=== PATIENT | female | born 1955 | race Caucasian/White ===

== ENCOUNTER → 2016-06-08 | Outpatient (CLI) | payer OTHER ==
[~2016-06-08] MED LIST: AMIT25TA PO; ASPI1TAB PO; ATOR1TAB19 PO; CALC600T21 PO; ESOM1CAP5 PO; EXEM25TA PO; LISI-538 PO; MYRB25TA PO; VITA100066 PO
--- NOTE | 2016-06-08 19:07 | REP ---
Acute abdominal series series including PA chest and supine upright abdomen: PA chest: Cardiac size appears enlarged, however, I suspect this is artifactual from large bilateral epicardial fat pads. Lung carballo are clear. The erin, mediastinum, and bony thorax unremarkable. There is no free subdiaphragmatic air. Impression: Essentially negative PA chest. Abdomen, supine upright views: The bowel gas pattern is normal. There are calcifications in the pelvis, nonspecific, ureteral versus phleboliths. Correlation with symptomatology is recommended. Skeletal structures and soft tissues are otherwise unremarkable. Impression: Normal bowel gas pattern. Signed by Owen Wood MD 06/08/2016 06:59 P
== END ==
LOC: M LRY 18:22
PROVIDERS: ATTEND Nurse Practitioner Family
DX: R14.0 Abdominal distension (gaseous) (principal)

== ENCOUNTER → 2016-06-08 | Outpatient (REF) | payer OTHER ==
[2016-06-08 20:26] LABS: AMYLASE 59 U/L (25-115)
[2016-06-08 20:32] LABS: ALBUMIN 4.1 GM/DL (3.2-5.2); ALBUMIN/GLOBULIN RATIO 1.24 (1.00-1.93); ALKALINE PHOSPHATASE 73 U/L (45-117); ALT/SGPT 19 U/L (12-78); ANION GAP 6 MEQ/L (8-16); AST/SGOT 27 U/L (15-37); BILIRUBIN,TOTAL 0.3 MG/DL (0.2-1.0); BLOOD UREA NITROGEN 16 MG/DL (7-18); CALCIUM LEVEL 9.1 MG/DL (8.8-10.2); CARBON DIOXIDE LEVEL 31 MEQ/L (21-32); CHLORIDE LEVEL 104 MEQ/L (98-107); CREATININE FOR GFR 0.72 MG/DL (0.55-1.02); GLOMERULAR FILTRATION RATE > 60.0 (>45); GLUCOSE, FASTING 97 MG/DL (80-110); POTASSIUM SERUM 3.9 MEQ/L (3.5-5.1); SODIUM LEVEL 141 MEQ/L (136-145); TOTAL PROTEIN 7.4 GM/DL (6.4-8.2)
[2016-06-08 20:42] LABS: BASO % 0.7 % (0.0-1.0); EOS # 0.3 K/mm3 (0.0-0.50); LARGE UNSTAINED CELL # 0.1 K/mm3 (0.0-0.4); LARGE UNSTAINED CELL % 1.7 % (0.0-4.0); LYMPH # 1.6 K/mm3 (1.5-4.5); LYMPH % 28.5 % (24.0-44.0); MEAN CORPUSCULAR HEMOGLOBIN 32.8 pg (27.0-33.0); MEAN CORPUSCULAR HGB CONC 34.7 g/dl (32.0-36.5); MEAN CORPUSCULAR VOLUME 94.3 fl (80.0-96.0); MONO # 0.5 K/mm3 (0.0-0.8); MONO % 8.2 % (0.0-5.0); NEUTROPHILS # 3.2 K/mm3 (1.8-7.7); NEUTROPHILS % 55.9 % (36.0-66.0); PLATELET COUNT, AUTOMATED 260 k/mm3 (150-450); RED CELL DISTRIBUTION WIDTH 13.3 % (11.5-14.5); WHITE BLOOD COUNT 5.7 K/mm3 (4.0-10.0)
== END ==
LOC: M SFHCLERA 18:20
PROVIDERS: ATTEND Nurse Practitioner Family
DX: R14.0 Abdominal distension (gaseous) (principal)

== ENCOUNTER 2017-05-23 12:25 | Day surgery (SDC) | payer OTHER ==
[2017-05-23] MEDS: LR 1,000 ML IV (12:00)
[2017-05-23] MEDS ORDERED: PROPOFOL 200 MG/20 ML VIAL As Ordered ×3 (14:54)
[2017-05-23] MEDS ORDERED: LIDOCAINE 2% INJ 100 MG/5 ML SDV (FOR ANES.) As Ordered (14:54)
== END 2017-05-23 15:38 | disposition home or self-care (01) ==
LOC: M OPP 12:25
DX: R13.10 Dysphagia, unspecified (principal); K31.7 Polyp of stomach and duodenum; K22.2 Esophageal obstruction; K44.9 Diaphragmatic hernia without obstruction or gangrene; J30.1 Allergic rhinitis due to pollen; I10 Essential (primary) hypertension; E78.00 Pure hypercholesterolemia, unspecified; M19.90 Unspecified osteoarthritis, unspecified site; M79.7 Fibromyalgia; Z79.82 Long term (current) use of aspirin; Z79.899 Other long term (current) drug therapy; Z86.718 Personal history of other venous thrombosis and embolism; Z96.652 Presence of left artificial knee joint
CPT/HCPCS: 43249

== ENCOUNTER → 2017-07-17 | Outpatient (CLI) | payer OTHER ==
[2017-07-17 10:56] LABS: ALBUMIN 3.8 GM/DL (3.2-5.2); ANION GAP 6 MEQ/L (8-16); BLOOD UREA NITROGEN 24 MG/DL (7-18); CALCIUM LEVEL 8.9 MG/DL (8.8-10.2); CARBON DIOXIDE LEVEL 30 MEQ/L (21-32); CHLORIDE LEVEL 105 MEQ/L (98-107); GLOMERULAR FILTRATION RATE > 60.0 (>45); GLUCOSE, FASTING 100 MG/DL (70-100); MAGNESIUM LEVEL 2.5 MG/DL (1.8-2.4); PHOSPHORUS LEVEL 3.8 MG/DL (2.5-4.9); POTASSIUM SERUM 4.6 MEQ/L (3.5-5.1); SODIUM LEVEL 141 MEQ/L (136-145)
== END ==
LOC: M LAB 10:12
DX: I49.3 Ventricular premature depolarization (principal)
CPT/HCPCS: 83735

== ENCOUNTER → 2018-08-07 | Outpatient (REF) | payer MEDICARE, OTHER ==
[~2018-08-07] MED LIST changes: -ASPI1TAB PO; +ASPI81TA26 PO; +BACLOFEN PO; +BIOT1CAP2 PO; -CALC600T21 PO; +CALC600T60 PO; +CALCTAB75 PO
[2018-08-07 19:32] LABS: AMORPHOUS SEDIMENT SMALL (NEGATIVE); APPEARANCE, URINE TURBID (CLEAR); BACTERIA, URINE AUTO NEGATIVE (NEGATIVE); BILIRUBIN, URINE AUTO NEGATIVE (NEGATIVE); BLOOD, URINE BLOOD NEGATIVE (NEGATIVE); COLOR, URINE YELLOW (YELLOW); GLUCOSE, URINE (UA) AUTO NEGATIVE (NEGATIVE); KETONE, URINE AUTO NEGATIVE (NEGATIVE); LEUKOCYTE ESTERASE, URINE AUTO NEGATIVE (NEGATIVE); MUCUS, URINE SMALL (NEGATIVE); NITRITE, URINE AUTO NEGATIVE (NEGATIVE); PROTEIN, URINE AUTO NEGATIVE (NEGATIVE); RBC, URINE AUTO 0 /HPF (0-3); SPECIFIC GRAVITY URINE AUTO 1.025 (1.002-1.035); SQUAMOUS EPITHELIAL CELL UR AU 0 /HPF (0-6); UROBILINOGEN, URINE AUTO 0.2 mg/dL (0.0-2.0); WBC, URINE AUTO 0 /HPF (0-3)
== END ==
LOC: M SMT 17:22
PROVIDERS: ATTEND Nurse Practitioner Family
DX: R32 Unspecified urinary incontinence (principal); R31.9 Hematuria, unspecified
CPT/HCPCS: 51798; 81001; 87086; 88108; G0463

== ENCOUNTER → 2018-08-23 | Outpatient (REF) | payer MEDICARE, OTHER ==
[2018-08-23 13:44] LABS: BASO % 0.8 % (0.0-1.0); EOS # 0.2 10^3/uL (0.0-0.50); EOS % 3.2 % (0.0-3.0); HEMOGLOBIN 13.9 g/dl (12.0-15.5); LYMPH # 1.8 10^3/uL (1.5-4.5); LYMPH % 34.1 % (24.0-44.0); MEAN CORPUSCULAR HEMOGLOBIN 31.4 pg (27.0-33.0); MEAN CORPUSCULAR HGB CONC 33.1 g/dl (32.0-36.5); MEAN CORPUSCULAR VOLUME 94.8 fl (80.0-96.0); MONO # 0.5 10^3/uL (0.0-0.8); MONO % 9.5 % (0.0-5.0); NEUTROPHILS # 2.8 10^3/uL (1.8-7.7); NEUTROPHILS % 52.2 % (36.0-66.0); PLATELET COUNT, AUTOMATED 240 10^3/uL (150-450); RED BLOOD COUNT 4.43 10^6/uL (4.00-5.40); WHITE BLOOD COUNT 5.3 10^3/uL (4.0-10.0)
[2018-08-23 13:50] LABS: C REACTIVE PROTEIN QUANTITATIV < 0.30 MG/DL (0.00-0.30); RHEUMATOID FACTOR QUANT < 10.0 IU/ML (<15.0); URIC ACID 3.9 MG/DL (2.6-6.0)
[2018-08-23 14:27] LABS: ERYTHROCYTE SEDIMENTATION RATE 15 mm/hr (0-30)
[2018-08-29 10:17] LABS: ANTINUCLEAR ANTIBODIES DIRECT Negative (Negative); DEOXYCORTICOSTERONE LEVEL 2.5 ng/dL (.); Lyme Disease IgG/IgM Antibodie <0.91 ISR (0.00-0.90); Lyme Disease IgM Ab Quantitati <0.80 index (0.00-0.79)
== END ==
LOC: M LABDRAW1 12:34
PROVIDERS: ATTEND Physician Assistant Surgical
DX: M72.2 Plantar fascial fibromatosis (principal)

== ENCOUNTER → 2018-08-27 | Outpatient (CLI) | payer MEDICARE, OTHER ==
--- NOTE | 2018-08-30 07:42 | SLEEPCENT ---
DATE OF PROCEDURE: 08/27/2018 ORDERED BY: Iman Murray Nocturnal polysomnography was performed for evaluation of sleep physiology in this patient with a history of excessive somnolence, snoring and nonrestorative sleep who has comorbidities of hypertension, acid reflux disease and obesity. 9 hours and 7 minutes of data were reviewed. There were 388 minutes of sleep identified. Sleep latency was delayed at 62.5 minutes, but rapid eye movement (REM) sleep occurred on schedule at 59 minutes. Sleep architecture was fairly well-preserved. There were 4 REM cycles. Some periods of wake were seen intermittently resulting in reduced sleep efficiency at 71.7%. The patient's electrocardiogram showed a sinus rhythm with an average heart rate of 62 beats per minute. Rate ranged 40-80 beats per minute. Electroencephalogram (EEG) showed normal waveforms for wake and sleep stages. There were 111 respiratory events identified of 10 seconds in duration or greater for an apnea-hypopnea index of 17.2. The events were primarily obstructive, not exclusive to sleep stage nor body posture. Arousals from respiratory events occurred 4.8 times per hour and oxygen desaturations were seen into the 70s. There was little activity in the limb leads and remaining measures of sleep physiology were normal. IMPRESSION: Obstructive sleep apnea syndrome (G47.33). Apnea-hypopnea index 17.2. RECOMMENDATION: The patient should be encouraged to return to the sleep disorder center for pressure therapy. In the interim, alcohol and sedative avoidance should be practiced and caution exercised during the operation of motor vehicles.
== END ==
LOC: M SLEEP 19:28
PROVIDERS: ATTEND Nurse Practitioner Family
DX: G47.33 Obstructive sleep apnea (adult) (pediatric) (principal)

== ENCOUNTER 2018-11-15 08:36 | Outpatient (RCR) | payer MEDICARE, OTHER | END 2018-11-18 | LOC: M PT 08:36 | PROVIDERS: ATTEND Nurse Practitioner Family | DX: R32 Unspecified urinary incontinence (principal) ==

== ENCOUNTER 2018-12-12 09:28 | Outpatient (RCR) | payer MEDICARE, OTHER | END 2018-12-19 | LOC: M PT 09:28 | PROVIDERS: ATTEND Nurse Practitioner Family | DX: Z51.89 Encounter for other specified aftercare (principal); R32 Unspecified urinary incontinence ==

== ENCOUNTER 2019-01-16 09:30 | Outpatient (RCR) | payer MEDICARE, OTHER | END 2019-01-19 | LOC: M PT 09:30 | PROVIDERS: ATTEND Nurse Practitioner Family | DX: R32 Unspecified urinary incontinence (principal) ==

== ENCOUNTER 2019-02-12 10:37 | Outpatient (RCR) | payer MEDICARE, OTHER | END 2019-02-18 | LOC: M PT 10:37 | PROVIDERS: ATTEND Nurse Practitioner Family | DX: Z51.89 Encounter for other specified aftercare (principal); R32 Unspecified urinary incontinence ==

== ENCOUNTER → 2020-08-22 | Outpatient (CLI) | payer MEDICARE, OTHER ==
[~2020-08-22] MED LIST changes: -AMIT25TA PO; +AMIT25TA17 PO; +ESOM40CA35 PO; -LISI-538 PO; +LISI20TA33 PO; +VITA-112 PO
== END ==
LOC: M LABSMTC 10:01
PROVIDERS: ATTEND Anesthesiology
DX: Z20.828 Contact with and (suspected) exposure to other viral communicable diseases (principal); Z11.59 Encounter for screening for other viral diseases

== ENCOUNTER 2020-08-27 07:22 | Day surgery (SDC) | payer MEDICARE, OTHER ==
[~2020-08-27] VITALS: Ht 165.1 cm; Wt 103.9 kg
[~2020-08-27 07:22] MED LIST changes: +LIDOCAINE 2% 100MG/5ML SDV (FOR ANES.) As Ordered ONE; +NS 1,000 ML IV ONE; +fentaNYL 100 MCG/2 ML INJECTION (J3010) As Ordered ONE; +propofoL 200 MG/20 ML VIAL As Ordered ONE
[2020-08-27] MEDS ORDERED: PHENYLephrine 500MCG 5ML (100MCG/ML) SYRINGE As Ordered ONE (09:22)
[2020-08-27] MEDS ORDERED: ePHEDrine SULFATE 25 MG/5 ML(5MG/ML) SYRINGE As Ordered ONE (09:27)
--- NOTE | 2020-08-27 09:43 | ROOR ---
Patient Name: Leanna Quintanilla Procedure Date: 08/27/2020 8:46 AM Date of : 1955 Age: 65 Room: [facility] Gender: Female Note Status: Finalized Procedure: Upper GI endoscopy Indications: Dysphagia, Heartburn Providers: Kailash Cesar MD Referring MD: KAN SYKES Requesting Provider: Medicines: Monitored Anesthesia Care Complications: No immediate complications. Procedure: Pre-Anesthesia Assessment: - Prior to the procedure, a History and Physical was performed, and patient medications and allergies were reviewed. The patient is competent. The risks and benefits of the procedure and the sedation options and risks were discussed with the patient. All questions were answered and informed consent was obtained. Patient identification and proposed procedure were verified by the physician, the nurse and the business database analyst in the procedure room. Mental Status Examination: alert and oriented. Airway Examination: normal oropharyngeal airway and neck mobility. Prophylactic Antibiotics: The patient does not require prophylactic antibiotics. Prior Anticoagulants: The patient has taken no previous anticoagulant or antiplatelet agents. ASA Grade Assessment: III - A patient with severe systemic disease. After reviewing the risks and benefits, the patient was deemed in satisfactory condition to undergo the procedure. The anesthesia plan was to use monitored anesthesia care (MAC). Immediately prior to administration of medications, the patient was re-assessed for adequacy to receive sedatives. The heart rate, respiratory rate, oxygen saturations, blood pressure, adequacy of pulmonary ventilation, and response to care were monitored throughout the procedure. The physical status of the patient was re-assessed after the procedure. The Endoscope was introduced through the mouth, and advanced to the second part of duodenum. The upper GI endoscopy was accomplished without difficulty. The patient tolerated the procedure well. Findings: One benign-appearing, intrinsic moderate stenosis was found 33 cm from the incisors. This stenosis measured 1.5 cm (inner diameter) x less than one cm (in length). The stenosis was traversed. A TTS dilator was passed through the scope. Dilation with an 18-19-20 mm balloon dilator was performed to 20 mm. The dilation site was examined and showed mild mucosal disruption. A small hiatal hernia was present. Multiple small sessile polyps with no bleeding and no stigmata of recent bleeding were found in the gastric body. The examined duodenum was normal. Impression: - Benign-appearing esophageal stenosis. Dilated. - Small hiatal hernia. - Multiple gastric polyps. - Normal examined duodenum. - No specimens collected. Recommendation: - Discharge patient to home. - Resume previous diet. - Continue present medications. Procedure Code(s): --- Professional --- 62116, Esophagogastroduodenoscopy, flexible, transoral; with transendoscopic balloon dilation of esophagus (less than 30 mm diameter) Diagnosis Code(s): --- Professional --- K22.2, Esophageal obstruction K44.9, Diaphragmatic hernia without obstruction or gangrene K31.7, Polyp of stomach and duodenum R13.10, Dysphagia, unspecified R12, Heartburn CPT copyright 2019 [employer]. All rights reserved. The codes documented in this report are preliminary and upon medical billing coder review may be revised to meet current compliance requirements. Kailash Cesar MD Kailash Cesar MD 08/27/2020 9:43:23 AM Electronically signed by Kailash Cesar MD Number of Addenda: 0 Note Initiated On: 08/27/2020 8:46 AM Estimated Blood Loss: Estimated blood loss: none.
[2020-08-27 10:00] VITALS: BP 131/64
--- NOTE | 2020-08-27 10:03 | ROOR ---
Patient Name: Leanna Quintanilla Procedure Date: 08/27/2020 8:47 AM Date of : 1955 Age: 65 Room: [facility] Gender: Female Note Status: Finalized Procedure: Colonoscopy Indications: Screening in patient at increased risk: Colorectal cancer in sister 60 or older, Last colonoscopy: August 2015 Providers: Kailash Cesar MD Referring MD: KAN SYKES Requesting Provider: Medicines: Monitored Anesthesia Care Complications: No immediate complications. Procedure: Pre-Anesthesia Assessment: - Prior to the procedure, a History and Physical was performed, and patient medications and allergies were reviewed. The patient is competent. The risks and benefits of the procedure and the sedation options and risks were discussed with the patient. All questions were answered and informed consent was obtained. Patient identification and proposed procedure were verified by the physician, the nurse and the plastic tile setter in the procedure room. Mental Status Examination: alert and oriented. Airway Examination: normal oropharyngeal airway and neck mobility. Prophylactic Antibiotics: The patient does not require prophylactic antibiotics. Prior Anticoagulants: The patient has taken no previous anticoagulant or antiplatelet agents. ASA Grade Assessment: II - A patient with mild systemic disease. After reviewing the risks and benefits, the patient was deemed in satisfactory condition to undergo the procedure. The anesthesia plan was to use monitored anesthesia care (MAC). Immediately prior to administration of medications, the patient was re-assessed for adequacy to receive sedatives. The heart rate, respiratory rate, oxygen saturations, blood pressure, adequacy of pulmonary ventilation, and response to care were monitored throughout the procedure. The physical status of the patient was re-assessed after the procedure. The Colonoscope was introduced through the anus and advanced to the cecum, identified by appendiceal orifice and ileocecal valve. The colonoscopy was performed without difficulty. The patient tolerated the procedure well. The quality of the bowel preparation was excellent. Findings: The perianal and digital rectal examinations were normal. A few small-mouthed diverticula were found in the transverse colon. Multiple medium-mouthed diverticula were found in the sigmoid colon. The exam was otherwise without abnormality. Impression: - Diverticulosis in the transverse colon. - Diverticulosis in the sigmoid colon. - The examination was otherwise normal. - No specimens collected. Recommendation: - Discharge patient to home. - Resume previous diet. - Continue present medications. - Repeat colonoscopy in 5 years for screening purposes. Procedure Code(s): --- Professional --- G0105, Colorectal cancer screening; colonoscopy on individual at high risk Diagnosis Code(s): --- Professional --- Z80.0, Family history of malignant neoplasm of digestive organs K57.30, Diverticulosis of large intestine without perforation or abscess without bleeding CPT copyright 2019 [employer]. All rights reserved. The codes documented in this report are preliminary and upon customer service advocate review may be revised to meet current compliance requirements. Kailash Cesar MD Kailash Cesar MD 08/27/2020 10:03:25 AM Electronically signed by Kailash Cesar MD Number of Addenda: 0 Note Initiated On: 08/27/2020 8:47 AM Estimated Blood Loss: Estimated blood loss: none.
== END 2020-08-27 10:05 | disposition home or self-care (01) ==
LOC: M OPP 07:22
PROVIDERS: ATTEND Surgery
DX: Z12.11 Encounter for screening for malignant neoplasm of colon (principal); Z80.0 Family history of malignant neoplasm of digestive organs; K57.30 Diverticulosis of large intestine without perforation or abscess without bleeding; K22.2 Esophageal obstruction; K44.9 Diaphragmatic hernia without obstruction or gangrene; K31.7 Polyp of stomach and duodenum; R13.10 Dysphagia, unspecified; R12 Heartburn; Z79.82 Long term (current) use of aspirin; Z79.899 Other long term (current) drug therapy
CPT/HCPCS: 43249; G0105; J2370; J3010

== ENCOUNTER → 2020-09-10 | Outpatient (CLI) | payer MEDICARE, OTHER ==
[~2020-09-10] MED LIST changes: -LIDOCAINE 2% 100MG/5ML SDV (FOR ANES.) As Ordered ONE; -NS 1,000 ML IV ONE; -fentaNYL 100 MCG/2 ML INJECTION (J3010) As Ordered ONE; -propofoL 200 MG/20 ML VIAL As Ordered ONE
[2020-09-10 15:32] LABS: BACTERIA, URINE AUTO NEGATIVE (NEGATIVE); MUCUS, URINE SMALL (NEGATIVE); RBC, URINE AUTO 1 /HPF (0-3); SQUAMOUS EPITHELIAL CELL UR AU 1 /HPF (0-6); WBC, URINE AUTO 1 /HPF (0-3)
[2020-09-10 15:41] LABS: HEMATOCRIT 42.9 % (36.0-47.0); HEMOGLOBIN 14.1 g/dl (12.0-15.5); MEAN CORPUSCULAR HEMOGLOBIN 31.3 pg (27.0-33.0); MEAN CORPUSCULAR HGB CONC 32.9 g/dl (32.0-36.5); MEAN CORPUSCULAR VOLUME 95.1 fl (80.0-96.0); PLATELET COUNT, AUTOMATED 274 10^3/uL (150-450); RED BLOOD COUNT 4.51 10^6/uL (4.00-5.40)
[2020-09-10 16:01] LABS: BLOOD UREA NITROGEN 18 MG/DL (7-18); CALCIUM LEVEL 9.7 MG/DL (8.8-10.2); CARBON DIOXIDE LEVEL 31 MEQ/L (21-32); CHLORIDE LEVEL 108 MEQ/L (98-107); CREATININE FOR GFR 0.57 MG/DL (0.55-1.30); GLOMERULAR FILTRATION RATE > 60.0 (>45); GLUCOSE, FASTING 93 MG/DL (70-100); POTASSIUM SERUM 4.2 MEQ/L (3.5-5.1); SODIUM LEVEL 142 MEQ/L (136-145)
--- NOTE | 2020-09-10 20:35 | ECGEPIP ---
[facility] Test Date: 2020-09-10 Pat Name: LILLIAN CRUZ Department: Room: - Gender: Female Diesel Engine Fitter: MICHAEL : 1955 Requested By: FELICIA Ojeda Order Number: [id number] Reading MD: Leah Noel Measurements Intervals [place] Rate: 64 P: 0 MN: 160 QRS: 18 QRSD: 82 T: 39 QT: 424 QTc: 437 Interpretive Statements SINUS RHYTHM NO PRIOR Electronically Signed on 09-10-2020 20:34:33 EDT by Leah Noel
== END ==
LOC: M EKG 14:09
PROVIDERS: ATTEND Specialist
DX: Z01.818 Encounter for other preprocedural examination (principal); R32 Unspecified urinary incontinence

== ENCOUNTER → 2020-09-13 | Outpatient (CLI) | payer MEDICARE, OTHER | LOC: M LABSMTC 08:51 | PROVIDERS: ATTEND Anesthesiology | DX: Z01.812 Encounter for preprocedural laboratory examination (principal); Z11.52 Encounter for screening for COVID-19 ==

== ENCOUNTER 2020-09-18 11:24 | Day surgery (SDC) | payer MEDICARE, OTHER ==
[~2020-09-18] VITALS: Ht 167.6 cm; Wt 104.2 kg
[~2020-09-18 11:24] MED LIST changes: +LIDOCAINE 1% MDV 20ML VIAL SQ PRN; +LR 1,000 ML IV ONE; +ceFAZolin SOD 2 GM in IV 1 EA IV ONE
[2020-09-18] MEDS ORDERED: MIDAZOLAM INJ 2MG/2ML VIAL (J2250 PER 1MG) As Ordered ONE (12:46)
[2020-09-18] MEDS ORDERED: fentaNYL 100 MCG/2 ML INJECTION (J3010) As Ordered ONE (12:46)
[2020-09-18] MEDS ORDERED: LIDOCAINE 2% 5ML JELLY UROJET As Ordered ONE (13:46)
[2020-09-18] MEDS ORDERED: propofoL 200 MG/20 ML VIAL As Ordered ONE ×2 (13:50→14:35)
--- NOTE | 2020-09-18 15:06 | ROOPDOC ---
[facility] Report Of Operation Report of Operation DATE OF PROCEDURE: 09/18/20 PREPROCEDURE DIAGNOSES: Severe mixed incontinence with a significant stress component and intrinsic sphincteric deficiency POSTPROCEDURE DIAGNOSES: Same PROCEDURE: Cystoscopy, injection of Macroplastique SURGEON: Marisela Harley MD MANAGER TECHNICAL SERVICES: None ANESTHESIA: IV sedation and 5 mL of lidocaine jelly ESTIMATED BLOOD LOSS: Approximately 0 mL. COMPLICATIONS: None REMARKS: 3 vials of Macroplastique used PROCEDURE NOTE: Leanna is a 65-year-old female with significant mixed urinary incontinence but found to have a significant stress component and intrinsic sphincteric deficiency by urodynamics studies. After discussing all different options and alternatives she decided to proceed with cystoscopy and intraurethral bulking agent understanding that further management may be needed in the future. Informed consent was obtained in both verbal and written form. DESCRIPTION OF PROCEDURE: The patient was brought into the operating room. Sequential compression devices were in place and preoperative antibiotics had been given. IV sedation was induced and the patient was placed in the lithotomy position. Attention was paid that her pressure points were well padded and protected. She was prepped and draped in the usual fashion. 5 mL of lidocaine jelly was placed in the urethra. Next a 21 K[place]ili cystoscope with a 30 lens was done to do cystoscopy and both ureteral orifices were seen. There was no evidence of erythematous patches, lesions, or other abnormalities. The bladder was emptied and the urethrotome was then utilized with the [address] into the urethra a vial of Macroplastique was first placed at the 12 o'clock position and then this was repeated at the 2:00 and 10:00 positions. There was significant closure of the mid and distal urethra. The patient tolerated the procedure well and was brought to the recovery room in stable condition. MARISELA HARLEY MD Sep 18, 2020 15:06
[2020-09-18] MEDS ORDERED: ONDANSETRON 4MG/2ML VIAL IV PRN (16:10)
[2020-09-18] MEDS ORDERED: PERCOCET 5MG/325MG TAB PO PRN (16:10)
[2020-09-18] MEDS ORDERED: fentaNYL 100 MCG/2 ML INJECTION (J3010) IV PRN (16:10)
[2020-09-18] MEDS ORDERED: LR 1,000 ML IV SCH (16:10)
[2020-09-18] MEDS ORDERED: METOCLOPRAMIDE INJ 10MG/2ML VIAL (J2765 PER 1) IV PRN (16:10)
[2020-09-18 20:00] VITALS: BP 156/74
== END 2020-09-18 20:00 | disposition home or self-care (01) ==
LOC: M SDC 11:24
PROVIDERS: ATTEND Specialist
DX: N36.42 Intrinsic sphincter deficiency (ISD) (principal); N39.46 Mixed incontinence; R31.9 Hematuria, unspecified; R35.1 Nocturia; I10 Essential (primary) hypertension; E78.00 Pure hypercholesterolemia, unspecified; M19.90 Unspecified osteoarthritis, unspecified site; K44.9 Diaphragmatic hernia without obstruction or gangrene; K21.9 Gastro-esophageal reflux disease without esophagitis; Z86.718 Personal history of other venous thrombosis and embolism; Z79.899 Other long term (current) drug therapy; Z79.82 Long term (current) use of aspirin
CPT/HCPCS: 51715; J0690; J2250; J3010; L8606

== ENCOUNTER → 2020-09-23 | Outpatient (REF) | payer MEDICARE, OTHER ==
[~2020-09-23] MED LIST changes: -LIDOCAINE 1% MDV 20ML VIAL SQ PRN; -LR 1,000 ML IV ONE; -ceFAZolin SOD 2 GM in IV 1 EA IV ONE
[2020-09-23 18:37] LABS: BACTERIA, URINE AUTO 1+ (NEGATIVE); MUCUS, URINE SMALL (NEGATIVE); RBC, URINE AUTO 30 /HPF (0-3); SQUAMOUS EPITHELIAL CELL UR AU 5 /HPF (0-6); WBC, URINE AUTO TNTC /HPF (0-3)
== END ==
LOC: M SMT 16:49
PROVIDERS: ATTEND Specialist
DX: R32 Unspecified urinary incontinence (principal)

== ENCOUNTER → 2020-09-24 | Outpatient (CLI) | payer MEDICARE, OTHER ==
--- NOTE | 2020-09-24 14:25 | REP ---
INDICATION: Cervalgia. COMPARISON: Comparison is made with prior study from 26 May 2015.. TECHNIQUE: Eight views including flexion extension lateral radiographs. FINDINGS: Lateral views done in flexion extension and neutral position show no subluxation or instability. Vertebral body heights are preserved. There is degenerative disc narrowing at C5-6 and C6-7 with anterior and posterior osteophytic ridging. Swimmer's lateral view shows no additional abnormality. Open mouth odontoid view is unremarkable. AP view shows osteoarthritic facet hypertrophy in the midcervical spine. Oblique images demonstrate normally aligned facets bilaterally at each cervical level. There is mild uncovertebral spurring on the right at C5-6. Degenerative disc changes are somewhat more pronounced than they were on the 2016 prior study at the C5-6 level. IMPRESSION: Degenerative spondylosis changes most pronounced at C5-6. These findings are somewhat more pronounced at C5-6 than on the 2016 prior study <Electronically signed by Ralph Rico > 09/24/20 [id number]
--- NOTE | 2020-09-24 14:27 | REP ---
INDICATION: Thoracic spine pain. COMPARISON: Comparison radiographs of 26 May 2015.. TECHNIQUE: Three views. FINDINGS: Thoracic vertebral body heights are preserved. Alignment is normal. Pedicles and posterior elements are intact. There is right and left-sided discogenic spurring and anterior discogenic spurring at multiple mid and lower thoracic levels essentially unchanged in extent from the 2016 study. Some of the anterior discogenic spurring is larger than it was in 2016. No fracture or collapse is seen. No bony destructive lesion is seen. No paravertebral soft tissue mass is noted. IMPRESSION: Degenerative spondylosis changes in the mid and lower thoracic spine. Discogenic spurring is more prominent at several levels than on the 2016 study. <Electronically signed by Ralph Rico > 09/24/20 [id number]
--- NOTE | 2020-09-24 14:31 | REP ---
INDICATION: Low back pain. COMPARISON: Comparison lumbar spine radiographs are from 27 May 2019.. TECHNIQUE: Five views. FINDINGS: Lumbar vertebral body heights are preserved. There is a degenerative 7 mm spondylolisthesis at L4-5. There is disc space narrowing at L4-5. There is no evidence of pars defect. The spondylolisthesis is unchanged when compared with the [address] reconstructed images. There is disc space narrowing at L3-4 and L2-3 as well with early discogenic spurring at these 2 levels. There is mild facet hypertrophy bilaterally at L5-S1 and L4-5 unchanged. Psoas margins are symmetric. Sacrum and SI joints are intact. IMPRESSION: Stable grade 1, 6 mm, L4-5 spondylolisthesis due to degenerative disc and osteoarthritic facet disease. Mild degenerative spondylosis changes elsewhere in the lumbar spine as above. <Electronically signed by Ralph Rico > 09/24/20 [id number]
--- NOTE | 2020-09-24 14:34 | REP ---
INDICATION: PAIN IN LEFT KNEE, PAIN IN RIGHT KNEE. COMPARISON: Comparison knee radiographs are from March 18, 2016.. TECHNIQUE: Total of 9 views, four views of the left knee and 5 on the right. FINDINGS: Five views of the right knee demonstrate patellofemoral and medial compartment osteoarthritic narrowing and spur formation. There is mild spurring in the lateral compartment as well. Subtle fullness in the suprapatellar bursa may indicate a small amount of fluid on the right knee. The findings are similar to the prior study. Inferior pole patellar spurring is a little more prominent than on the 2016 prior study.. Four views of the left knee demonstrate left knee arthroplasty components in good position. No erosive changes seen. The left knee arthroplasty is been installed in the interval since the 18 March 2016 prior study.. IMPRESSION: Moderate 3 compartment osteoarthritis of the right knee most pronounced in the medial and patellofemoral compartments. Slightly more prominent than on 2016 study. Status post left knee arthroplasty.. <Electronically signed by Ralph Rico > 09/24/20 [id number]
== END ==
LOC: M RAD 12:21
PROVIDERS: ATTEND Physician Assistant
DX: M47.814 Spondylosis without myelopathy or radiculopathy, thoracic region (principal); M43.16 Spondylolisthesis, lumbar region; M17.11 Unilateral primary osteoarthritis, right knee; M47.812 Spondylosis without myelopathy or radiculopathy, cervical region; M25.562 Pain in left knee; M25.561 Pain in right knee; M54.2 Cervicalgia; M54.5 Low back pain; M54.6 Pain in thoracic spine

== ENCOUNTER → 2020-10-09 | Outpatient (REF) | payer MEDICARE, OTHER ==
[2020-10-09 13:41] LABS: AMORPHOUS SEDIMENT SMALL (NEGATIVE); APPEARANCE, URINE CLOUDY (CLEAR); BACTERIA, URINE AUTO 1+ (NEGATIVE); BILIRUBIN, URINE AUTO NEGATIVE (NEGATIVE); BLOOD, URINE BLOOD 1+ (NEGATIVE); COLOR, URINE YELLOW (YELLOW); GLUCOSE, URINE (UA) AUTO NEGATIVE (NEGATIVE); KETONE, URINE AUTO NEGATIVE (NEGATIVE); LEUKOCYTE ESTERASE, URINE AUTO 3+ (NEGATIVE); MUCUS, URINE SMALL (NEGATIVE); NITRITE, URINE AUTO NEGATIVE (NEGATIVE); PROTEIN, URINE AUTO 2+ mg/dL (NEGATIVE); RBC, URINE AUTO 30 /HPF (0-3); SPECIFIC GRAVITY URINE AUTO 1.021 (1.002-1.035); SQUAMOUS EPITHELIAL CELL UR AU 8 /HPF (0-6); UROBILINOGEN, URINE AUTO 0.2 mg/dL (0.0-2.0); WBC, URINE AUTO TNTC /HPF (0-3)
== END ==
LOC: M SMT 12:50
PROVIDERS: ATTEND Nurse Practitioner Women's Health
DX: N39.0 Urinary tract infection, site not specified (principal)
CPT/HCPCS: 51798; 81001; 87086; G0463

== ENCOUNTER → 2020-10-12 | Outpatient (REF) | payer MEDICARE, OTHER ==
[2020-10-12 18:08] LABS: APPEARANCE, URINE CLOUDY (CLEAR); BACTERIA, URINE AUTO 1+ (NEGATIVE); BILIRUBIN, URINE AUTO NEGATIVE (NEGATIVE); BLOOD, URINE BLOOD 2+ (NEGATIVE); CALCIUM OXALATE CRYSTALS LARGE; COLOR, URINE YELLOW (YELLOW); GLUCOSE, URINE (UA) AUTO NEGATIVE (NEGATIVE); KETONE, URINE AUTO NEGATIVE (NEGATIVE); LEUKOCYTE ESTERASE, URINE AUTO 3+ (NEGATIVE); MUCUS, URINE SMALL (NEGATIVE); NITRITE, URINE AUTO NEGATIVE (NEGATIVE); PROTEIN, URINE AUTO 2+ mg/dL (NEGATIVE); RBC, URINE AUTO 50 /HPF (0-3); SPECIFIC GRAVITY URINE AUTO 1.026 (1.002-1.035); SQUAMOUS EPITHELIAL CELL UR AU 2 /HPF (0-6); UROBILINOGEN, URINE AUTO 0.2 mg/dL (0.0-2.0); WBC, URINE AUTO TNTC /HPF (0-3)
== END ==
LOC: M SMT 16:41
PROVIDERS: ATTEND Nurse Practitioner Women's Health
DX: N39.0 Urinary tract infection, site not specified (principal)

== ENCOUNTER → 2020-10-14 | Outpatient (REF) | payer MEDICARE, OTHER ==
[2020-10-14 13:36] LABS: APPEARANCE, URINE HAZY (CLEAR); BACTERIA, URINE AUTO NEGATIVE (NEGATIVE); BILIRUBIN, URINE AUTO NEGATIVE (NEGATIVE); BLOOD, URINE BLOOD 2+ (NEGATIVE); COLOR, URINE YELLOW (YELLOW); GLUCOSE, URINE (UA) AUTO NEGATIVE (NEGATIVE); KETONE, URINE AUTO NEGATIVE (NEGATIVE); LEUKOCYTE ESTERASE, URINE AUTO 2+ (NEGATIVE); MUCUS, URINE SMALL (NEGATIVE); NITRITE, URINE AUTO NEGATIVE (NEGATIVE); PROTEIN, URINE AUTO 2+ mg/dL (NEGATIVE); RBC, URINE AUTO 24 /HPF (0-3); SPECIFIC GRAVITY URINE AUTO 1.026 (1.002-1.035); SQUAMOUS EPITHELIAL CELL UR AU 1 /HPF (0-6); UROBILINOGEN, URINE AUTO 0.2 mg/dL (0.0-2.0); WBC, URINE AUTO 122 /HPF (0-3)
== END ==
LOC: M SMT 12:53
PROVIDERS: ATTEND Nurse Practitioner Women's Health
DX: R30.0 Dysuria (principal)

== ENCOUNTER → 2021-03-20 | Outpatient (CLI) | payer MEDICARE, OTHER ==
[~2021-03-20] MED LIST changes: +CHOL25TA8 PO; -VITA-112 PO
[2021-03-20 13:49] LABS: CREATININE FOR GFR 0.73 MG/DL (0.55-1.30); GLOMERULAR FILTRATION RATE > 60.0 (>45)
== END ==
LOC: M LAB 11:33
PROVIDERS: ATTEND Student in an Organized Health Care Education/Training Program
DX: R31.29 Other microscopic hematuria (principal)

== ENCOUNTER → 2021-04-26 | Outpatient (CLI) | payer MEDICARE, OTHER ==
[2021-04-26 18:23] LABS: MAGNESIUM LEVEL 2.3 MG/DL (1.8-2.4)
== END ==
LOC: M LAB 17:00
PROVIDERS: ATTEND Nurse Practitioner Family
DX: R14.0 Abdominal distension (gaseous) (principal); Z80.0 Family history of malignant neoplasm of digestive organs; K31.7 Polyp of stomach and duodenum; R19.4 Change in bowel habit; K22.10 Ulcer of esophagus without bleeding; K22.2 Esophageal obstruction; E55.9 Vitamin D deficiency, unspecified; K21.9 Gastro-esophageal reflux disease without esophagitis; Z79.899 Other long term (current) drug therapy

== ENCOUNTER → 2021-04-30 | Outpatient (CLI) | payer MEDICARE, OTHER ==
--- NOTE | 2021-04-30 13:16 | DEXAMM ---
INDICATION: OSTEOPOROSIS. COMPARISON: 03/01/2019, 01/18/2008. TECHNIQUE: Bone density was measured using dual-energy x-ray absorptiometry (DEXA). FINDINGS: AP SPINE L1-L4 BMD 1.234 g/cm2 Young Adult T-Score 0.3 Age Matched Z-Score 2.0. LT FEMUR, TOTAL BMD 0.950 g/cm2 Young Adult T-Score -0.5 Age Matched Z-Score 0.9. LT NECK BMD 0.866 g/cm2 Young Adult T-Score -1.2 Age Matched Z-Score 0.4. RT FEMUR, TOTAL BMD 0.944 g/cm2 Young Adult T-Score -0.5 Age Matched Z-Score 0.8. RT NECK BMD 0.875 g/cm2 Young Adult T-Score -1.2 Age Matched Z-Score 0.4. IMPRESSION: There is normal bone density of the spine. There is low bone density of the left hip. There is low bone density of the right hip. The density of the spine has decreased 5.1% since the initial exam on 01/18/2008. The density of the spine increased 3.9% since most recent exam on 03/01/2019. The density of the left hip has decreased 12.8% since initial exam on 01/18/2008. The density of the left hip has decreased 4.3% since most recent exam on 03/01/2019. The density of the right hip has decreased 17.1% since the initial exam on 01/18/2008. The density of the right hip has decreased 1.0% since the most recent exam on 03/01/2019. FOLLOW-UP: Recommendation for the next bone density exam: 2 years. <Electronically signed by Owen Yi > 04/30/21 [id number]
== END ==
LOC: M WHC 10:05
DX: Z13.820 Encounter for screening for osteoporosis (principal); M85.9 Disorder of bone density and structure, unspecified; Z78.0 Asymptomatic menopausal state

== ENCOUNTER → 2022-02-10 | Outpatient (CLI) | payer MEDICARE, OTHER ==
[2022-02-10 15:16] LABS: APPEARANCE, URINE MANUAL HAZY (CLEAR); COLOR, URINE MANUAL YELLOW (YELLOW)
[2022-02-10 15:17] LABS: BILIRUBIN, URINE MANUAL NEGATIVE (NEGATIVE); BLOOD URINE MANUAL POSITIVE (NEGATIVE); GLUCOSE, URINE (UA) MANUAL NEGATIVE (NEGATIVE); KETONE, URINE MANUAL NEGATIVE (NEGATIVE); LEUKOCYTE ESTERASE, URINE MAN POSITIVE (NEGATIVE); NITRITE, URINE MANUAL NEGATIVE (NEGATIVE); PROTEIN, URINE MANUAL NEGATIVE (NEGATIVE); SPECIFIC GRAVITY,URINE MANUAL 1.025 (1.002-1.035); UROBILINOGEN, URINE MANUAL NORMAL (NORMAL)
[2022-02-10 15:25] LABS: BACTERIA, URINE LARGE AMOUNT; SQUAMOUS EPITHELIAL CELL URINE MOD AMOUNT /hpf (SMALL AMT); WBC, URINE TNTC /hpf (0-3)
[2022-02-10 15:26] LABS: RBC, URINE 0-1 /hpf (0-3)
[2022-02-10 15:27] LABS: HYALINE CAST, URINE NONE SEEN /lpf (0-1); MUCUS, URINE SMALL AMOUNT (NEGATIVE)
== END ==
LOC: M LAB 14:30
PROVIDERS: ATTEND Urology
DX: N39.0 Urinary tract infection, site not specified (principal)

== ENCOUNTER → 2022-06-23 | Outpatient (CLI) | payer MEDICARE, OTHER | LOC: M RAD 13:07 | PROVIDERS: ATTEND Physician Assistant | DX: M16.11 Unilateral primary osteoarthritis, right hip (principal) ==

== ENCOUNTER → 2022-07-07 | Outpatient (REF) | payer MEDICARE, OTHER | LOC: M PLALAB 15:11 | PROVIDERS: ATTEND Nurse Practitioner Family | DX: Z12.4 Encounter for screening for malignant neoplasm of cervix (principal) | CPT/HCPCS: 87624; G0123 ==

== ENCOUNTER → 2023-01-31 | Outpatient (CLI) | payer MEDICARE, OTHER ==
[~2023-01-31] MED LIST changes: -AMIT25TA17 PO; +AMIT25TA19 PO
== END ==
LOC: M PLAIMG 07:47
PROVIDERS: ATTEND Orthopaedic Surgery
DX: M25.551 Pain in right hip (principal); M16.11 Unilateral primary osteoarthritis, right hip; M70.61 Trochanteric bursitis, right hip; M76.01 Gluteal tendinitis, right hip; M51.26 Other intervertebral disc displacement, lumbar region; M47.816 Spondylosis without myelopathy or radiculopathy, lumbar region

== ENCOUNTER → 2023-08-03 | Outpatient (REF) | payer MEDICARE, OTHER ==
[2023-08-03 14:48] LABS: ALBUMIN 3.6 G/DL (3.2-5.2); ALKALINE PHOSPHATASE 65 U/L (46-116); ALT/SGPT < 9 U/L (7.0-40); AST/SGOT 19 U/L (<34); BILIRUBIN,TOTAL 0.5 MG/DL (0.3-1.2); BLOOD UREA NITROGEN 16 MG/DL (9-23); CALCIUM LEVEL 8.8 MG/DL (8.3-10.6); CARBON DIOXIDE LEVEL 29 MMOL/L (20-31); CHLORIDE LEVEL 107 MMOL/L (98-107); CHOLESTEROL LEVEL 160 MG/DL (<200); CHOLESTEROL RISK RATIO 2.94 (<5); CREATININE FOR GFR 0.62 MG/DL (0.55-1.30); GLOMERULAR FILTRATION RATE > 60.0 (>39); GLUCOSE, FASTING 99 MG/DL (74-106); HDL CHOLESTEROL 54.4 MG/DL (>40); HEMATOCRIT 42.3 % (36.0-47.0); HEMOGLOBIN 14.1 g/dl (12.0-15.5); LDL CHOLESTEROL 82.2 MG/DL (<100); MEAN CORPUSCULAR HEMOGLOBIN 32.9 pg (27.0-33.0); MEAN CORPUSCULAR HGB CONC 33.3 g/dl (32.0-36.5); MEAN CORPUSCULAR VOLUME 98.6 fl (80.0-96.0); NON-HDL-C 105.6 MG/DL; PLATELET COUNT, AUTOMATED 260 10^3/uL (150-450); POTASSIUM SERUM 4.2 MMOL/L (3.5-5.1); RED BLOOD COUNT 4.29 10^6/uL (4.00-5.40); SODIUM LEVEL 139 MMOL/L (136-145); TOTAL PROTEIN 6.5 G/DL (5.7-8.2); TRIGLYCERIDES LEVEL 117 MG/DL (<150); WHITE BLOOD COUNT 6.1 10^3/uL (4.0-10.0)
== END ==
LOC: M LABWUC 12:30
PROVIDERS: ATTEND Physician Assistant
DX: I10 Essential (primary) hypertension (principal); E78.5 Hyperlipidemia, unspecified

== ENCOUNTER → 2024-12-12 | Outpatient (CLI) | payer MEDICARE, OTHER ==
[~2024-12-12] MED LIST changes: +ESOM1CAP20 PO; -ESOM1CAP5 PO
== END ==
LOC: M RAD 12:04
PROVIDERS: ATTEND Physician Assistant
DX: M25.551 Pain in right hip (principal); M16.11 Unilateral primary osteoarthritis, right hip